=== PATIENT | female | born 1985 | race Caucasian/White ===

== ENCOUNTER 2019-05-30 07:12 | Outpatient (CLI) | payer OTHER, SELFPAY ==
[2019-05-30 08:11] LABS: Hematocrit 39.8 % (37.0-47.0); Hemoglobin 12.9 g/dL (12.0-15.0); Mean Corpuscular HGB Conc 32.4 g/dl (32-36); Mean Corpuscular Hemoglobin 29.1 pg (26-34); Mean Corpuscular Volume 89.6 fl (80-100); Mean Platelet Volume 10.2 fl (7.4-10.4); Platelet Count Result 226 k/mm3 (150-375); Red Blood Count 4.44 M/mm3 (4.2-5.4); Red Cell Distribution Width 12.4 % (11.5-14.5); White Blood Count 5.2 K/mm3 (4.5-10.0)
[2019-05-30 08:21] LABS: Alanine Aminotransferase 17 U/L (4-35); Albumin Level 4.4 g/dL (3.5-5.1); Alkaline Phosphatase 41 U/L (38-126); Aspartate Amino Transferase 24 U/L (14-36); Bilirubin,Total 0.3 mg/dL (0.2-1.3); Blood Urea Nitrogen 14 mg/dL (7-17); Calcium 8.8 mg/dL (8.4-10.2); Carbon Dioxide 25 mmol/L (22-30); Chloride 101 mmol/L (98-107); Cholesterol 133 mg/dL (0-200); Estimated Glomerular Filt Rate > 60; Glucose 89 mg/dL (65-105); HDL Direct 69 mg/dL; Potassium 4.3 mmol/L (3.4-5.0); Sodium 139 mmol/L (137-145); Triglycerides < 30 mg/dL (<150)
[2019-05-30 08:32] LABS: LDL Cholesterol Direct 55 mg/dL
[2019-06-05 10:55] LABS: Vitamin D 1,25 (OH)2 Total 65 pg/mL (18-72); Vitamin D2 1,25 (OH)2 <8 pg/mL; Vitamin D3 1,25 (OH)2 65 pg/mL
== END 2019-05-30 07:13 | disposition home or self-care (01) ==
PROVIDERS: PCP Family Medicine; Visit Provider Nurse Practitioner Family
DX: Z13.220 Encounter for screening for lipoid disorders (principal); E55.9 Vitamin D deficiency, unspecified; R53.83 Other fatigue
CPT/HCPCS: 36415; 80053; 80061; 82652; 84443; 85027

== ENCOUNTER 2020-02-22 07:11 | Outpatient (CLI) | payer OTHER, SELFPAY ==
[2020-02-22 07:36] LABS: Hematocrit 41.4 % (37.0-47.0); Hemoglobin 13.9 g/dL (12.0-15.0); Mean Corpuscular HGB Conc 33.6 g/dl (32-36); Mean Corpuscular Hemoglobin 29.6 pg (26-34); Mean Corpuscular Volume 88.1 fl (80-100); Mean Platelet Volume 9.6 fl (7.4-10.4); Platelet Count Result 263 k/mm3 (150-375); Red Cell Distribution Width 12.4 % (11.5-14.5); White Blood Count 4.2 K/mm3 (4.5-10.0)
[2020-02-22 07:49] LABS: Alanine Aminotransferase 19 U/L (4-35); Albumin Level 4.8 g/dL (3.5-5.1); Alkaline Phosphatase 47 U/L (38-126); Anion Gap 10 mmol/L (8-16); Aspartate Amino Transferase 30 U/L (14-36); Bilirubin,Total 0.4 mg/dL (0.2-1.3); Blood Urea Nitrogen 15 mg/dL (7-17); Calcium 9.5 mg/dL (8.4-10.2); Carbon Dioxide 28 mmol/L (22-30); Chloride 104 mmol/L (98-107); Cholesterol 167 mg/dL (0-200); Estimated Glomerular Filt Rate > 60; Glucose 100 mg/dL (65-105); HDL Direct 78 mg/dL; Potassium 4.8 mmol/L (3.4-5.0); Sodium 142 mmol/L (137-145); Triglycerides 42 mg/dL (<150)
[2020-02-22 07:51] LABS: Hemoglobin A1C 5.1 % (<5.7)
[2020-02-22 08:01] LABS: LDL Cholesterol Direct 69 mg/dL
[2020-02-22 08:36] LABS: Free T4 Free Thyroxine 1.09 ng/mL (0.78-2.19); Vitamin D 25 Hydroxy 47.5 ng/mL
== END 2020-02-22 07:12 | disposition home or self-care (01) ==
PROVIDERS: Visit Provider Nurse Practitioner
DX: Z13.220 Encounter for screening for lipoid disorders (principal); Z13.31 Encounter for screening for depression; R53.83 Other fatigue; E55.9 Vitamin D deficiency, unspecified; F41.8 Other specified anxiety disorders; Z00.00 Encounter for general adult medical examination without abnormal findings
CPT/HCPCS: 36415; 80053; 80061; 82306; 82607; 83036; 84439; 84443; 85027

== ENCOUNTER 2021-10-28 16:38 | Outpatient (CLI) | payer OTHER, SELFPAY ==
--- NOTE | ~2021-10-28 | US_ITS ---
US axilla RT 10/28/2021 17:17 Indication: Right axillary lymph nodes Procedure: High-resolution ultrasound of the right axilla Comparison: No prior studies for comparison. Findings: There are normal-appearing right axillary lymph nodes which retain fatty hilum, measuring 1 3 x 9 mm and 13 x 5 mm respectively. Impression: 1: Normal-appearing right axillary lymph nodes. BI-RADS CATEGORY 2 - BENIGN FINDINGS Reviewed, dictated and finalized at location A. Impression: 1: Normal-appearing right axillary lymph nodes. BI-RADS CATEGORY 2 - BENIGN FINDINGS
== END 2021-10-28 16:39 | disposition home or self-care (01) ==
PROVIDERS: PCP Family Medicine; Visit Provider Nurse Practitioner Family
DX: M79.621 Pain in right upper arm (principal); R59.9 Enlarged lymph nodes, unspecified
CPT/HCPCS: 76882

== ENCOUNTER 2022-10-01 14:33 | Outpatient (CLI) | payer OTHER, SELFPAY ==
--- NOTE | ~2022-10-01 | US_ITS ---
EXAMINATION: US pelvic complete DATE: 10/01/2022 15:33 INDICATION: Menorrhagia TECHNIQUE: Multiple transabdominal and endovaginal sonographic images of the pelvis were obtained. COMPARISON: None. FINDINGS: The uterus measures 9.1 x 5.6 x 4.3 cm. The endometrial complex measures 5 mm in thickness. The righ t ovary measures 3.9 x 2.3 x 2.2 cm. 1 cm anechoic cyst/follicle in the right ovary. The left ovary m easures 3.7 x 2.9 x 2.3 cm. There is a larger 1.8 cm cystic lesion in the left ovary with small hypoe choic region and a few thin internal septations. Vascular flow identified at both ovaries on color Do ppler. There is no free fluid in the pelvis. IMPRESSION: 1. 1.8 cm complex cystic lesion in the left ovary with appearance consistent with and statistically m ost likely to represent a hemorrhagic cyst. Differential would include endometrial neoplasm and would recommend 6-12 week follow-up pelvic ultrasound to document resolution. 2. Normal uterus with 5 mm thick endometrial complex. Reviewed, dictated and finalized at location B. IMPRESSION: 1. 1.8 cm complex cystic lesion in the left ovary with appearance consistent wi th and statistically most likely to represent a hemorrhagic cyst. Differential would include endometrial neoplasm and would recommend 6-12 week follow-up pelv ic ultrasound to document resolution. 2. Normal uterus with 5 mm thick endometrial complex.
== END 2022-10-01 14:34 | disposition home or self-care (01) ==
PROVIDERS: PCP Family Medicine Sports Medicine; Visit Provider Nurse Practitioner
DX: N92.0 Excessive and frequent menstruation with regular cycle (principal); N83.202 Unspecified ovarian cyst, left side
CPT/HCPCS: 76856

== ENCOUNTER 2023-06-30 14:36 | Outpatient (CLI) | payer BC, SELFPAY ==
--- NOTE | ~2023-06-30 | US_ITS ---
Pelvic ultrasound. Clinical History: Pelvic pain Technique: Realtime transabdominal scanning of the pelvis was performed. Color flow Doppler and Doppl er spectral analysis were performed. Findings: The uterus is anteverted. The endometrial stripe has a thickness of 7 mm. No focal mass is identified. The right ovary measures 2.5 x 1.9 x 2.6 cm. No significant right ovarian or adnexal mass is seen. The left ovary measures 3.7 x 2.8 x 3.6 cm. Left ovarian cyst measures 2.7 cm in diameter, of doubtfu l clinical significance. There is no evidence of free fluid in the cul de sac. Impression: No significant abnormality seen. Small left ovarian cyst, as above. Reviewed, dictated and finalized at location . Impression: No significant abnormality seen. Small left ovarian cyst, as above.
== END 2023-06-30 14:37 ==
PROVIDERS: PCP Nurse Practitioner Women's Health; Visit Provider Nurse Practitioner Women's Health
DX: N83.202 Unspecified ovarian cyst, left side (principal)
CPT/HCPCS: 76856

== ENCOUNTER 2024-11-09 07:51 | Outpatient (CLI) | payer BC, SELFPAY ==
--- OUTSIDE RECORDS SUMMARY | 2024-11-09 07:57 | XMS_ITS | Clinical Summary ---
Author Organization [facility] Address [address] [place] [address] Care Team Providers Care Mechanical Laboratory Technician Name Role Phone Unavailable Primary Care Provider Unavailabl e Source Comments [facility],non-owned Affiliates and Associated Physician Practices is amultiple site organization consisting of ambulatory clinics and hospital sitesin [place], [place], [place] and [place]. This disclosure is being madepursuant to the Care Everywhere program and may not contain all information available regarding this patient. Last updated 17.[facility] Allergies Active Allergy Reactions Criticality Noted Date Comments Sulfa Drugs Vomiting 07/18/2016 Medications * Be aware that medications may not be up to date on this document. Alwaysverify current medications with the patient. No known medications Active Problems No known active problems Family History Medical History Relation Name Comments Asthma Neg Hx Autoimmune Disease Neg Hx Bipolar Disorder Neg Hx Cancer - Breast Neg Hx Cancer - Colon Neg Hx Cancer - Other Neg Hx Cancer - Ovarian Neg Hx Cancer - Pancreatic Neg Hx Cancer - Prostate Neg Hx Depression Neg Hx Eczema Neg Hx Hypertension Neg Hx Migraine Neg Hx Osteoporosis Neg Hx Seizures Neg Hx Sudd. <30 Neg Hx Thyroid Disease Neg Hx Ulcerative Colitis Neg Hx Relation Name Status Comments Father Alive Mother Alive Social History Tobacco Use Types Packs/Day Years Used Date Smoking Tobacco: Never Smokeless Tobacco: Never Tobacco Cessation:Counseling Given: No Alcohol Use Standard Drinks/Week Comments No 0 (1 standard drink = 0.6 oz pur e alcohol) Comments No Sex and Gender Information Value Date Recorded Sex Assigned at Not on file Legal Sex Female 12:38 PM CDT Gender Identity Not on file Sexual Orientation Not on file Last Filed Vital Signs Vital Sign Reading Time Taken Comments Blood Pressure 118/64 01/28/2019 4:54 PM CDT Pulse 79 01/28/2019 4:54 PM CDT Temperature 37.4 C (99.4 F) 01/28/2019 4:54 PM CDT Respiratory Rate 16 01/28/2019 4:54 PM CDT Oxygen Saturation 99% 01/28/2019 4:54 PM CDT Inhaled Oxygen Concentration - - Weight 59 kg (130 lb) 01/28/2019 4:54 PM CDT Height 167.6 cm (5' 6) 01/28/2019 4:54 PM CDT Body Mass Index 20.98 01/28/2019 4:54 PM CDT Plan of Treatment Health Maintenance Due Date Last Done Comments HIV SCREENING 2000 HEPATITIS C SCREENING 07/16/2003 DTAP/TDAP/TD VACCINES (1 - Tdap) 2004 HEPATITIS B VACCINE (1 of 3 - 19+ 3-dose series) 2004 PAP SMEAR 2006 HPV VACCINE (1 - 3-dose SCDM series) 2012 COVID-19 VACCINE (1 - 2023-2 5 season) 2023 DEPRESSION SCREENING 03/30/2024 INFLUENZA VACCINE (#1) 2024 ZOSTER VACCINE (1 of 2) 07/21/2035 HIB VACCINE Aged Out No longer eligi ble based on patient's age to complete this topic MENINGOCOCCAL (Group B) VACC INE SHARED DECISION-MAKING Aged Out No longer eligibl e based on patient's age to complete this topic MENINGOCOCCAL GROUPS A/C/Y/W VACCINE Aged Out No longer eligible b ased on patient's age to complete this topic PNEUMOCOCCAL VACCINE Aged Out No long er eligible based on patient's age to complete [place] [address] GEM
--- OUTSIDE RECORDS SUMMARY | 2024-11-09 07:57 | XMS_ITS | Clinical Summary ---
Author Organization [facility] Address [address] [place] [phone] Phone Care Team Providers Care Occupational Therapist Aide Name Role Phone Unknown, Notinfile Primary Care Provider Unavail able Allergies Active Allergy Reactions Criticality Noted Date Comments Sulfa (Sulfonamide Antibiotics) Sulfa (Sulfonamide Antibiotics) Vomiting Low 05/0 09/2016 Stomach/GI Upset Medications propranoloL (INDERAL) 40 mg tablet Take 1 tablet (40 mg total) by mouth daily as needed (Performance anxiety) 30 tablet 1 3 Active Additional Information Patient not taking.Reported on 04/26/2024 ALPRAZolam (XANAX) 2 mg tablet PATIENT TO BRING IN OFFICE FOR DAY OF PROCEDURE AND WILL FOLLOW IN OFFICE DIRECTIONS 3 Active norgestimate-et hinyl estradioL (Ortho Tri-Cyclen LO, 28,) 0.18/0.215/0.25 mg-25 mcg per tablet daily Active spironolactone (ALDACTONE) 100 mg tablet Take 1 tablet (100 mg total) by mouth 2 (two) times a day Active hydrocortisone 2.5 % cream 4 Active ketoconazole (NIZORAL) 2 % cream 4 Active minocycline (MINOCIN,DYNACI N) 100 mg capsule TAKE 1 CAPSULE BY MOUTH TWICE DAILY WITH FOOD UNTIL CLEAR. IF FLARES OCCUR, TAKE 2 CAPSULES WITH FOOD FOR 5 TO 7 DAYS. 4 Active Active Problems Problem Noted Date Diagnosed Date Lesion of breast 03/14/2016 Immunizations Immunization Administration Dates Next Due Influenza, Quadrivalent, Spl it, Preservative Free, Intramuscular 01/15/2022 Influenza, Trivalent, High D ose, Split, Preservative Free, Intramuscular 01/11/2018 Influenza, Trivalent, IM (MDV) 12/24/2020 Influenza, Unspecified 02/02/2016,01/01/2016 Tdap 03/30/2015 Surgical History Surgery Date Site/Laterality Comments ABDOMINAL SURGERY Abdominal Surgery - removal of L accessory navicular (Added by TW Conv) MOLE REMOVAL benign Medical History Medical History Date Comments Maternal care for other know n or suspected poor growth, unspecified trimester, not applicable or unspecified IUGR, antenat al - (Added by TW Conv) Other abnormal findings on a ntenatal screening of mother NST (non-stress test) nonrea ctive - (Added by TW Conv) Encounter for full-term unco mplicated delivery (normal spontaneous vag inal delivery) - (Added by TW Conv) No pertinent past medical history Family History Medical History Relation Name Comments Hypertension Father Osteoporosis Mother Cervical cancer Paternal Grandmother Breast cancer Neg Hx Colon cancer Neg Hx Relation Name Status Comments Father Mother Paternal Grandmother Social History Tobacco Use Types Packs/Day Years Used Date Smoking Tobacco: Never Cigarettes Smokeless Tobacco: Never Tobacco Cessation:Counseling Given: Not Answered PHQ-2 Answer Date Recorded PHQ-2 Total Score (If total score is 3 or more points, staff should administer the PHQ-9) 0 09/22/2022 Comments No Sex and Gender Information Value Date Recorded Sex Assigned at Not on file Legal Sex Female 9:58 PM SIEBEL ARCHITECT Gender Identity Not on file Sexual Orientation Not on file Obstetrics History Last Filed Vital Signs Vital Sign Reading Time Taken Comments Blood Pressure 118/72 04/26/2024 3:07 PM SIEBEL ARCHITECT Pulse 70 04/26/2024 3:07 PM SIEBEL ARCHITECT Temperature 36.8 C (98.2 F) 04/26/2024 3:07 PM SIEBEL ARCHITECT Respiratory Rate 20 04/26/2024 3:07 PM SIEBEL ARCHITECT Oxygen Saturation 99% 04/26/2024 3:07 PM SIEBEL ARCHITECT Inhaled Oxygen Concentration - - Weight 57.6 kg (127 lb) 04/26/2024 3:07 PM SIEBEL ARCHITECT Height 170.2 cm (5' 7) 04/26/2024 3:07 PM SIEBEL ARCHITECT Body Mass Index 19.89 04/26/2024 3:07 PM SIEBEL ARCHITECT Plan of Treatment Health Maintenance Due Date Last Done Comments Cervical Cancer Screening 1985 Hepatitis C Screening 1985 Hepatitis B Screening 07/21/2003 HPV Vaccines (1 - 3-dose SCDM series) 2012 Depression Screening 09/23/2023 09/22/2022 Regular Well Visit/Exam 18-64 09/23/2023 09/22/2022 Covid-19 Vaccine ( season) 2023 01/15/2022, 12/24/2020, 04/07/2020, Additional history exists Influenza Vaccine (#1) 2024 , 12/24/2020, 01/11/2018, Additional history exists DTaP/Tdap/Td Vaccine (2 - Td or Tdap) 03/30/2025 03/30/2015 Pneumococcal vaccine <65 Aged Out No longer eligible based on patient's age to complete this topic Varicella Vaccines Discontinued Insurance [employer] Care Teams Occupational Therapist Aide Relationship Specialty Start Date End Date Unknown, Notinfile PCP - General 04/26/24
[2024-11-09 08:29] LABS: Hematocrit 39.4 % (37.0-47.0); Hemoglobin 12.7 g/dL (12.0-15.0); Immature Granulocyte Percent A 0.2 % (0-0.5); Lymphocytes Absolute Auto 1.13 K/mm3 (0.9-3.2); Mean Corpuscular HGB Conc 32.2 g/dl (32-36); Mean Corpuscular Hemoglobin 28.5 pg (26-34); Mean Corpuscular Volume 88.5 fl (80-100); Nucleated Red Blood Cells Absolute Auto 0.000 K/mm3 (0.0-0.012); Nucleated Red Blood Cells Perc 0.0 % (0.0-0.2); Platelet Count Result 241 k/mm3 (150-375); Red Blood Count 4.45 M/mm3 (4.2-5.4); White Blood Count 4.4 K/mm3 (4.5-10.0)
[2024-11-09 08:50] LABS: Alanine Aminotransferase 26 U/L (6-35); Albumin Level 4.7 g/dL (3.5-5.1); Alkaline Phosphatase 47 U/L (38-126); Anion Gap 11 mmol/L (4-12); Aspartate Amino Transferase 36 U/L (14-36); Bilirubin,Total 0.6 mg/dL (0.2-1.3); Blood Urea Nitrogen 17 mg/dL (7-17); Calcium 9.5 mg/dL (8.4-10.2); Carbon Dioxide 23 mmol/L (22-30); Chloride 104 mmol/L (98-107); Cholesterol 151 mg/dL (0-200); Estimated Glomerular Filt Rate > 60; Glucose 82 mg/dL (65-110); HDL Direct 77 mg/dL; Potassium 4.4 mmol/L (3.4-5.0); Sodium 138 mmol/L (137-145); Total Protein 7.8 g/dL (6.3-8.2); Triglycerides 35 mg/dL (<150)
[2024-11-09 09:26] LABS: Thyroid Stimulating Hormone 1.170 uIU/mL (0.465-4.680)
[2024-11-09 10:00] LABS: Hemoglobin A1C 5.5 % (<5.7)
[2024-11-09 10:02] LABS: Free T4 Free Thyroxine 1.03 ng/dL (0.78-2.19)
== END 2024-11-09 07:52 | disposition home or self-care (01) ==
LOC: ANHLAB 07:53
PROVIDERS: PCP Family Medicine; Visit Provider Family Medicine
DX: E55.9 Vitamin D deficiency, unspecified (principal); Z00.00 Encounter for general adult medical examination without abnormal findings; Z13.220 Encounter for screening for lipoid disorders; R73.9 Hyperglycemia, unspecified; R53.83 Other fatigue
CPT/HCPCS: 36415; 80053; 80061; 82306; 83036; 84439; 84443; 85025

== ENCOUNTER 2025-02-08 13:46 | Outpatient (CLI) | payer BC, SELFPAY ==
--- NOTE | ~2025-02-08 | US_ITS ---
EXAMINATION: US pelvic complete, 02/08/2025 13:48 HIDE MEASURING MACHINE OPERATOR HISTORY: abnormal uterine bleeding Comparison: None Technique: Sahni-scale and color Doppler images were obtained. Findings: Uterus: Uterus anteverted 10 x 4.6 x 4.5 cm. . transabdominal imaging was obtained Endometrium 4 mm. Right Ovary:Right ovary 4.6 x 3.6 x 2.5 cm, no adnexal mass, normal flow. Left Ovary: Left ovary 4.1 x 4.4 x 2.2 cm, no adnexal mass, normal flow. Free Fluid: None Impression: 1. No etiology to explain the patient's symptoms Reviewed, dictated and finalized at location P. MEASURING MACHINE OPERATOR Impression: 1. No etiology to explain the patient's symptoms
== END 2025-02-08 13:47 | disposition home or self-care (01) ==
LOC: MICIMG 13:46
PROVIDERS: PCP Family Medicine
DX: N93.8 Other specified abnormal uterine and vaginal bleeding (principal)
CPT/HCPCS: 76856